=== PATIENT | female | born 1985 | race Caucasian/White ===

== ENCOUNTER 2017-12-03 09:54 | Emergency (ER) | payer MEDICAID ==
[~2017-12-03] VITALS: Ht 162.6 cm; Wt 70.3 kg
[2017-12-03 10:02] VITALS: Ht 162.6 cm; Wt 70.3 kg
[2017-12-03 11:23] VITALS: BP 127/93
== END 2017-12-03 11:23 | disposition home or self-care (01) ==
LOC: ED 09:54
DX: F32.9 Major depressive disorder, single episode, unspecified (principal); F41.9 Anxiety disorder, unspecified; Z86.59 Personal history of other mental and behavioral disorders